=== PATIENT | female | born 1980 | race Caucasian/White ===

== ENCOUNTER 2018-11-23 09:56 | Outpatient (REF) | payer MEDICAID, SELFPAY ==
--- NOTE | 2018-11-23 09:00 | PAPFT_PTH ---
PATIENT: Maria Del Carmen Guevara LOC: [facility]#:[id number] AGE/SX: 38/F ROOM: RE11/23/[address]: Rosaura Allan : 1980 BED: DIS: 11/23/2018 SPEC #: [id number] RECD: 11/23/18 18:43 STATUS: RUPA REQ #: [id number] RAVEN: 11/23/18 09:[address]: Rosaura Allan DEPT: [facility] Cytology RECD BY: Amber Paul ENTERED: 11/23/18 18:43 SP TYPE: PAPFT OTHR DR: Rae Goodson Tissues: 1 - CX/ENDOCX FOR PAP SMEARS Procedures: PAP THIN PREP/UVM Screening HPV DNA PROBE Comments: [id number]
== END 2018-11-23 10:16 ==
LOC: NCHCN 09:56
PROVIDERS: PCP Family Medicine; Visit Provider Nurse Practitioner
DX: Z12.4 Encounter for screening for malignant neoplasm of cervix (principal); Z11.51 Encounter for screening for human papillomavirus (HPV); Z00.00 Encounter for general adult medical examination without abnormal findings
CPT/HCPCS: 80061; 82947; 88142; 87624

== ENCOUNTER 2020-09-11 12:39 | Outpatient (REF) | payer MEDICAID, SELFPAY ==
--- NOTE | 2020-09-11 11:30 | PAPFT_PTH ---
PATIENT: Maria Del Carmen Guevara LOC: [facility]#:[id number] AGE/SX: 40/F ROOM: RE09/11/[address]: Rosaura Allan : 1980 BED: DIS: 09/11/2020 SPEC #: [id number] RECD: 09/12/20 12:55 STATUS: RUPA LANCE #: [id number] RAVEN: 09/11/20 11:[address]: Rosaura Allan DEPT: [facility] Cytology RECD BY: Amber Paul ENTERED: 09/12/20 12:55 SP TYPE: PAPFT OTHR DR: Rae Goodson Tissues: 1 - CX/ENDOCX FOR PAP SMEARS Procedures: PAP THIN PREP/UVM Screening HPV DNA PROBE Comments: [id number]
== END 2020-09-11 12:40 | disposition home or self-care (01) ==
LOC: NCHCN 12:39
PROVIDERS: PCP Family Medicine; Visit Provider Nurse Practitioner
DX: Z12.4 Encounter for screening for malignant neoplasm of cervix (principal); Z11.51 Encounter for screening for human papillomavirus (HPV); R87.618 Other abnormal cytological findings on specimens from cervix uteri; R87.810 Cervical high risk human papillomavirus (HPV) DNA test positive
CPT/HCPCS: 88142; 87624

== ENCOUNTER 2020-09-13 19:43 | Outpatient (REF) | payer MEDICAID, SELFPAY ==
[2020-09-13 20:09] LABS: Calculated LDL 139 mg/dL (<100); Cholesterol 197 mg/dL (<200); Glucose 90 mg/dL (74-106); HDL Cholesterol 46 mg/dL (40-60); Triglyceride 60 mg/dL (<150)
== END 2020-09-13 19:44 | disposition home or self-care (01) ==
LOC: NCHCN 19:43
PROVIDERS: PCP Family Medicine; Visit Provider Nurse Practitioner
DX: Z13.1 Encounter for screening for diabetes mellitus (principal); Z13.220 Encounter for screening for lipoid disorders
CPT/HCPCS: 80061; 82947

== ENCOUNTER 2020-12-31 06:42 | Emergency (ER) | payer MEDICAID, SELFPAY ==
[2020-12-31 06:49] VITALS: BP 148/78; PULSE 80; RESP 20; TEMP 37; O2SAT 98
--- NOTE | 2020-12-31 07:00 | RT.EKG_ITS ---
APPROVED REPORT Exam: Resting ECG Reason for Exam: chest pain Patient Location: E HR:62 bpm ECG Measurements Heart Rate [address] 141 P 31 QRSd 103 QRS 44 QT 406 T 33 QTc 411 Conclusion Sinus rhythm...normal P axis, V-rate 60- 99 Physician: no stemi, q wave in III
[2020-12-31 07:38] LABS: Abs Immature Grans 0.01 10^3/uL (0.0-0.06); Absolute Basophil Count 0.02 10^3/uL (0.0-0.2); Absolute Eosinophil Count 0.05 10^3/uL (0.0-0.7); Absolute Lymphocyte Count 1.54 10^3/uL (1.2-3.4); Absolute Monocyte Count 0.37 10^3/uL (0.1-0.8); Absolute Neutrophil Count 3.55 10^3/uL (1.2-6.7); Basophils % 0.4; Eosinophils % 0.9; HCT 39.8 % (36.0-46.0); HGB 13.2 g/dL (11.2-15.7); Immature Grans % 0.2; Lymphocytes % 27.8; MCH 30.6 pg (27.0-33.0); MCHC 33.2 % (32.0-36.0); MCV 92.1 fL (80-95); MPV 9.4 fL (8.0-11.0); Monocytes % 6.7; Nucleated RBC 0 %; Platelet Count 211 10^3/uL (130-400); RBC 4.32 10^6/uL (3.93-5.22); RDW-SD 40.8 fL; WBC 5.54 10^3/uL (4.4-10.8)
--- NOTE | 2020-12-31 07:40 | W.ED.GENAD ---
Discharge Plan Disposition Patient Disposition: HOME Condition: Stable Discharge Details Clinical Impression: Chest pain Primary Care Provider: Rae Goodson ED Provider: Lina Jones Home Meds and New Rx's Prescriptions: New famotidine [Pepcid] 40 mg tablet 40 mg PO DAILY Qty: 7 RF: 0 No Action mometasone [Nasonex] 17 GM spray,non-aerosol 2 spry NS DAILY RF: 0 venlafaxine 75 MG tablet 75 mg PO DAILY RF: 0 acetaminophen [Mapap Extra Strength] 500 MG tablet 500 mg PO PRN PRNRF: 0 Discharge Instructions Instructions: Chest Pain (ED), Diet for Stomach Ulcers and Gastritis (ED), GERD (Gastroesophageal Reflux Disease) (ED) Additional Instructions: Please return immediately to the emergency department if you develop any new or worsening symptoms, if your condition does not improve as expected, or if you become otherwise concerned. It is extremely important that you call soon as possible to make an appointment to be seen in follow-up for this visit by your primary care doctor. It is also extremely important that you undergo stress testing as we discussed. Referrals: Rae Goodson MD [Primary Care Provider] - Medical Decision Making <Dionte Winchester DO - Last Filed: 12/31/20 07:44> This is a 40-year-old female with no significant past medical history except for previous tobacco abuse, who presents today for evaluation of chest pain. Patient states that at 11 PM she developed burning in her chest and a mild chest heaviness with no pleuritic chest pain, shortness of breath, arm neck or shoulder pain. She took some Tums, and the slightly settled the symptoms down. Eventually the pain transition to her right upper quadrant which is very mild and then went away on its own. She came to the ER for further assessment. Currently she feels that the pain is significantly improved and that her biggest concern is the heart. She denies any exertional dyspnea, or previous cardiac disease. Family history is positive for massive heart attack in her father at the age of 38. She denies any new medications. No other complaints at this time. No other modifying factors. Physical exam is unremarkable. No significant abdominal tenderness, negative Marmolejo sign, no pain or McBurney's point. Patient states that her abdomen does not hurt and she does not want further imaging work-up of that. She states her primary concern was a brief episode of chest pain that she had last night especially in the setting of her father's heart attack. She states that she only wants further evaluation for this at this time. I do feel this is reasonable, especially based on exam. Will get EKG, laboratory work-up, monitor closely and reassess. Symptoms are inconsistent with PE or dissection. Most likely diagnosis is reflux, however we will evaluate for cardiac etiology. <Lina Jones MD - Last Filed: 12/31/20 14:30> Maria Del Carmen Guevara is a 40-year-old woman who presented to emergency department with burning chest pain and right upper quadrant pain that began at 1130 last night, now resolved, signed out to me at time of shift change by Dr. Winchester with lab work pending. Labs reviewed, white count 5.5, hemoglobin 13.2, potassium 4.0, calcium 10.5, troponin 0.05. Patient reassessed, she denies any pain or any symptoms. Exam/history/work-up at this time is not consistent with pneumothorax, bacterial pneumonia, acute aortic process, pulmonary embolism, sepsis, acute emergent intra-abdominal process, other. Discussed with patient that she is low risk by HEART score, need for outpatient stress test. Also discussed possibility of GERD as etiology of symptoms, with plan for dietary changes and Pepcid as outpatient. Plan for outpatient follow-up with PCP. I had a lengthy discussion with Patient regarding return to emergency department precautions, home care, and importance of outpatient follow-up. Pt verbalizes understanding of the plan and is amenable. Patient discharged to home with clear plan for outpatient follow-up. All questions were answered. Disposition decision was made weighing the risks and benefits of hospitalization versus outpatient treatment, the risk for further decompensation, and the patient's wishes. Medical Records Medical records reviewed: Yes I reviewed the patient's medical records. Lab Data Lab results reviewed: Yes I reviewed the patient's lab results. Labs: Laboratory Tests Range/Units 12/31/20 12/31/20 07:25 07:25 WBC (4.4-10.8) 10^3/uL 5.54 RBC (3.93-5.22) 10^6/uL 4.32 Hgb (11.2-15.7) g/dL 13.2 Hct (36.0-46.0) % 39.8 MCV (80-95) fL 92.1 MCH (27.0-33.0) pg 30.6 MCHC (32.0-36.0) % 33.2 RDW (11.7-14.6) % 12.0 Plt Count (130-400) 10^3/uL 211 MPV (8.0-11.0) fL 9.4 Immature Gran % 0.2 Neutrophils % 64.0 Lymphocytes % 27.8 Monocytes % 6.7 Eosinophils % 0.9 Basophils % 0.4 Nucleated RBC % % 0 Absolute Neutrophils (1.2-6.7) 10^3/uL 3.55 Absolute Lymphocytes (1.2-3.4) 10^3/uL 1.54 Absolute Monocytes (0.1-0.8) 10^3/uL 0.37 Absolute Eosinophils (0.0-0.7) 10^3/uL 0.05 Absolute Basophils (0.0-0.2) 10^3/uL 0.02 Sodium (136-145) mmol/L 143 Potassium (3.5-5.1) mmol/L 4.0 Chloride (98-107) mmol/L 105 Carbon Dioxide (21.0-32.0) mmol/L 29.1 Anion Gap (3-11) mmol/L 8.9 BUN (7-18) mg/dL 16 Creatinine (0.55-1.02) mg/dL 0.8 Estimated GFR/1.73 m2 (mL/min/1.73m2) >= 60.00 Glucose (74-106) mg/dL 114 H Calcium (8.5-10.1) mg/dL 10.5 H Total Bilirubin (0.2-1.0) mg/dL 0.5 AST (15-37) U/L 16 ALT (14-59) U/L 24 Alkaline Phosphatase (46-116) U/L 65 Troponin I (<0.06) ng/mL < 0.05 Total Protein (6.4-8.2) g/dL 7.6 Albumin (3.4-5.0) g/dL 4.1 Lipase (73-393) U/L 177 HPI <Dionte Winchester DO - Last Filed: 12/31/20 07:44> General Date/Time Provider Initiated Documentation: 12/31/20 06:45. HPI Narrative: This is a 40-year-old female with no significant past medical history except for previous tobacco abuse, who presents today for evaluation of chest pain. Patient states that at 11 PM she developed burning in her chest and a mild chest heaviness with no pleuritic chest pain, shortness of breath, arm neck or shoulder pain. She took some Tums, and the slightly settled the symptoms down. Eventually the pain transition to her right upper quadrant which is very mild and then went away on its own. She came to the ER for further assessment. Currently she feels that the pain is significantly improved and that her biggest concern is the heart. She denies any exertional dyspnea, or previous cardiac disease. Family history is positive for massive heart attack in her father at the age of 38. She denies any new medications. No other complaints at this time. No other modifying factors. Related Data Home Medications Medication Instructions Recorded Confirmed acetaminophen [Mapap Extra 500 mg PO PRN PRN 05/27/12 12/31/20 Strength] venlafaxine 75 mg PO DAILY 05/27/12 12/31/20 mometasone [Nasonex] 2 spry NS DAILY spray 10/06/16 12/31/20 famotidine [Pepcid] 40 mg PO DAILY #7 tab 12/31/20 Previous Rx's Medication Instructions Recorded famotidine [Pepcid] 40 mg PO DAILY #7 tab 12/31/20 Allergies Allergy/AdvReac Type Severity Reaction Status Date / Time No Known Allergies Allergy Unverified 07/23/17 09:44 General Stated Complaint: Abd Prob QUEENIE: 3 Review of Systems <Dionte Winchester DO - Last Filed: 12/31/20 07:44> All systems reviewed & are unremarkable except as noted in HPI and below PFSH <Dionte Winchester DO - Last Filed: 12/31/20 07:44> Active Problem List (Updated 12/31/20 @ 10:18 by Lina Jones MD) Chest pain (Acute) Social History Smoking/Tobacco Use Status: Current every day Smoking risk assessment performed?: Yes Alcohol Intake: never Drug use: Never Do you feel safe at home: Yes Do you feel safe in your relationship?: Yes Exam <Dionte Winchester DO - Last Filed: 12/31/20 07:44> Narrative Exam Narrative: 1.Const: Well-nourished, Well-developed, appearing stated age 2.Eyes: PERRL, no conjunctival injection, and symmetrical lids. 3.ENT: Atraumatic external nose and ears. Moist MM. Neck: Symmetric, trachea midline, No thyromegaly. 4.CVS: +S1/S2, No murmurs or gallops. Peripheral pulses 2+ and equal in all extremities. Brisk capillary refill in all extremities. 5.RESP: Unlabored respiratory effort. Clear to auscultation bilaterally. No wheezes rales or rhonchi 6.GI: Soft, Nontender/Nondistended, No hepatosplenomegaly. No guarding or rebound. No pain at McBurney's point, negative Marmolejo sign. No signs of an acute surgical abdomen. 7.MSK: Normocephalic/Atraumatic, Extremities w/o deformity or ttp No cyanosis or clubbing, Normal movement of all extremities 8.Skin: Warm, Dry. No rashes or lesions. 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 Sensation grossly intact, no focal neurologic deficits. 10.Psych: (AAO) x3. Appropriate mood and affect Course <Dionte Winchester DO - Last Filed: 12/31/20 07:44> Vital Signs Vital signs: Vital Signs Temperature 37.0 C 12/31/20 06:49 Pulse 80 12/31/20 06:49 Respiratory Rate 20 12/31/20 06:49 Blood Pressure 148/78 H 12/31/20 06:49 Pulse Oximetry 98 12/31/20 06:49 Temperature 37.0 C 12/31/20 06:49 Temperature Source Temporal Artery Scan 12/31/20 06:49 Pulse 80 12/31/20 06:49 Respiratory Rate 20 12/31/20 06:49 Blood Pressure 148/78 H 12/31/20 06:49 Blood Pressure Position Sitting 12/31/20 06:49 Pulse Oximetry 98 12/31/20 06:49 Oxygen Delivery Method Room Air 12/31/20 06:49 Oxygen Flow Rate 0 12/31/20 06:49 Pain Level 5 12/31/20 06:49 Lab/Test Results Lab/Test Results: Laboratory Tests Range/Units 12/31/20 07:25 WBC (4.4-10.8) 10^3/uL 5.54 RBC (3.93-5.22) 10^6/uL 4.32 Hgb (11.2-15.7) g/dL 13.2 Hct (36.0-46.0) % 39.8 MCV (80-95) fL 92.1 MCH (27.0-33.0) pg 30.6 MCHC (32.0-36.0) % 33.2 RDW (11.7-14.6) % 12.0 Plt Count (130-400) 10^3/uL 211 MPV (8.0-11.0) fL 9.4 Immature Gran % 0.2 Neutrophils % 64.0 Lymphocytes % 27.8 Monocytes % 6.7 Eosinophils % 0.9 Basophils % 0.4 Nucleated RBC % % 0 Absolute Neutrophils (1.2-6.7) 10^3/uL 3.55 Absolute Lymphocytes (1.2-3.4) 10^3/uL 1.54 Absolute Monocytes (0.1-0.8) 10^3/uL 0.37 Absolute Eosinophils (0.0-0.7) 10^3/uL 0.05 Absolute Basophils (0.0-0.2) 10^3/uL 0.02 Sign Out <Dionte Winchester DO - Last Filed: 12/31/20 07:44> Sign Out Data: Sign Out Comment: Chest pain, follow-up on labs and EKG Last updated by Dionte Winchester DO at 12/31/20 08:14
[2020-12-31 08:28] LABS: BUN 16 mg/dL (7-18); CREATININE 0.8 mg/dL (0.55-1.02); Calcium 10.5 mg/dL (8.5-10.1); Glucose 114 mg/dL (74-106)
[2020-12-31 08:29] LABS: ALT 24 U/L (14-59); AST 16 U/L (15-37); Albumin 4.1 g/dL (3.4-5.0); Alkaline Phosphatase 65 U/L (46-116); Anion Gap 8.9 mmol/L (3-11); Bilirubin, Total 0.5 mg/dL (0.2-1.0); CO2 29.1 mmol/L (21.0-32.0); Chloride 105 mmol/L (98-107); Lipase 177 U/L (73-393); Sodium 143 mmol/L (136-145); Total Protein 7.6 g/dL (6.4-8.2); Troponin I < 0.05 ng/mL (<0.06)
== END 2020-12-31 10:39 | disposition home or self-care (01) ==
PROVIDERS: Student in an Organized Health Care Education/Training Program; Emergency Provider Student in an Organized Health Care Education/Training Program; PCP Family Medicine
DX: R07.9 Chest pain, unspecified (principal); R10.11 Right upper quadrant pain
CPT/HCPCS: 36415; 80053; 83690; 93005; 99283; 84484; 85025; 93010

== ENCOUNTER 2021-01-08 00:31 | Outpatient (CLI) | payer MEDICAID, SELFPAY | END 2021-01-08 00:51 | PROVIDERS: PCP Family Medicine; Visit Provider Student in an Organized Health Care Education/Training Program ==

== ENCOUNTER 2022-08-03 20:50 | Emergency (ER) | payer MEDICAID, SELFPAY ==
[2022-08-03] VITALS (16 sets, daily range): BP systolic 91–152; BP diastolic 65–84; PULSE 57–81; RESP 14–24; TEMP 36.8; O2SAT 100
--- NOTE | 2022-08-03 20:45 | RT.EKG_ITS ---
APPROVED REPORT Exam: Resting ECG Reason for Exam: chest pain Patient Location: E HR:61 bpm ECG Measurements Heart Rate [address] 128 P 46 QRSd 100 QRS 82 QT 395 T 49 QTc 399 Conclusion Sinus rhythm...normal P axis, V-rate 60- 99
--- NOTE | 2022-08-03 21:00 | ED.GENADUL_ITS ---
Discharge Plan Disposition Patient Disposition: Home Condition: Good Discharge Details Clinical Impression: Neck and shoulder pain Primary Care Provider: Rae Goodson ED Provider: Yesenia Esteban Home Meds and New Rx's Prescriptions: New meloxicam submicronized 10 mg capsule 10 mg PO DAILY Qty: 30 0RF Continued mometasone [Nasonex] 17 GM spray,non-aerosol 2 spry NS DAILY venlafaxine 75 MG tablet 75 mg PO DAILY Patient Comments: 05/08/17 75mg plus 37.5mg daily. DM acetaminophen [Mapap Extra Strength] 500 MG tablet 500 mg PO PRN PRN famotidine [Pepcid] 40 mg tablet 40 mg PO DAILY Qty: 7 0RF Discharge Instructions Instructions: Shoulder Pain (ED), Acute Neck Pain (ED) Additional Instructions: Try the meloxicam as prescribed. Avoid ibuprofen or naproxen while taking this. You may augment this with Tylenol 650 mg every 6 hours as needed for pain. Apply heat 20 minutes on and 20 minutes off as needed for pain. See your primary care doc on Thursday as scheduled. Return to ED for severe numbness or weakness in your arm, chest pain, difficulty breathing, any other concerns. Medical Decision Making Of note, patient's father had an WI when he was 39 years old. He is still alive but did have to have a bypass. She has no other first-degree relatives with a history of coronary artery disease. She vapes but does not use cocaine or meth. We discussed vaping and EVALI. There is no diabetes, hypertension, or high cholesterol. Do not think these episodes are coming from her heart but perhaps shoulder or neck. We discussed this. She has an appointment with her PCP on Thursday. She may need a referral to physical therapy and/or additional imaging. I have written her for an additional NSAID and told her to try some heat. Medical Records Medical records reviewed: Yes I reviewed the patient's medical records. Imaging Data Radiologic Study: Imaging: X-Ray (Cervical spine and left shoulder x-rays show no acute disease) Lab Data Lab results reviewed: Yes I reviewed the patient's lab results. Lab results narrative: Unremarkable including troponin ECG Data Attestation: I personally reviewed and interpreted this ECG (s) as follows: (EKG: NSR 60, no ST-T changes, normal intervals, some artifact) HPI General Date/Time Provider Initiated Documentation: 08/03/22 20:51 . HPI Narrative: This 42-year-old female patient presents with a chief complaint of left shoulder, neck, and arm pain. The patient states that for the past 4 months or so she has had off-and-on episodes of anterior and posterior shoulder pain radiating up into her posterior neck and down her arm to her wrist. She describes no dermatomal pattern to the arm pain. She says that the shoulder and neck pain feel like spasm and she has her partner massage the areas when it occurs. She can bring the neck and shoulder discomfort on with neck extension and turning it laterally to the right. It can come on when she is at rest, ambulating, at night, during the day, etc. Today it lasted for a large part of the day and that is why she decided to come to the emergency department. The arm discomfort is of warmness. She says that that it is circumferential in nature and does not go down to her fingers but stops at her wrist. There is no numbness or weakness. Related Data Home Medications Medication Instructions Recorded Confirmed acetaminophen 500 mg tablet (Mapap 500 mg PO PRN PRN 05/27/12 12/31/20 Extra Strength) venlafaxine 75 mg tablet 75 mg PO DAILY 05/27/12 12/31/20 mometasone 50 mcg/actuation nasal 2 spry NS DAILY 10/06/16 12/31/20 spray (Nasonex) famotidine 40 mg tablet (Pepcid) 40 mg PO DAILY #7 tabs 12/31/20 meloxicam submicronized 10 mg 10 mg PO DAILY #30 caps 08/03/22 capsule Previous Rx's Medication Instructions Recorded famotidine 40 mg tablet (Pepcid) 40 mg PO DAILY #7 tabs 12/31/20 meloxicam submicronized 10 mg 10 mg PO DAILY #30 caps 08/03/22 capsule Allergies Allergy/AdvReac Type Severity Reaction Status Date / Time No Known Allergies Allergy Unverified 07/23/17 09:44 General Stated Complaint: Chest Pain QUEENIE: 3 Review of Systems Constitutional Constitutional: Denies chills, Denies fever(s), Denies headache(s) and Denies weakness Eyes Eyes: Denies diplopia and Reports other (no redness) ENT Ears, Nose, Mouth, and Throat: Denies otalgia, Denies headache(s), Denies nasal congestion, Denies nasal discharge, Reports neck pain and Denies sore throat Cardiovascular Cardiovascular: Denies chest pain, Denies palpitations and Denies dyspnea Respiratory Respiratory: Denies cough and Denies dyspnea Gastrointestinal Gastrointestinal: Denies abdominal pain, Denies diarrhea, Denies nausea and Denies vomiting Genitourinary Genitourinary: Denies dysuria Musculoskeletal Musculoskeletal: Denies myalgias, Denies muscle weakness, Reports neck pain, Denies numbness and Reports other (edema) Comments: Has left neck, shoulder, and arm pain Integumentary/Breasts Skin/Breast: Denies change in pigmentation and Denies rash Neurologic Neurologic: Denies headache(s), Denies numbness and Denies weakness Endocrine Endocrine: Denies palpitations PFSH All Active Problems (Updated 08/03/22 @ 23:19 by Yesenia Esteban MD) Chest pain (Acute) Neck and shoulder pain (Acute) Social History Smoking/Tobacco Use Status: Current every day Smoking risk assessment performed?: Yes Alcohol Intake: never Drug use: Never Do you feel safe at home: Yes Do you feel safe in your relationship?: Yes Exam Const General: no acute distress, well developed, well groomed and not in acute distress Nutritional Appearance: well nourished Orientation: alert and oriented x3 [facility] Head: normocephalic and atraumatic Ears: external ears normal Mouth: oropharynx normal and moist mucous membranes Throat: posterior oropharynx normal Eyes Conjunctivae: conjunctivae normal Neck Neck: full ROM and supple Chest Chest: normal inspection of the chest Resp Effort & Inspection: normal respiratory effort Auscultation: clear to auscultation bilaterally Cardio Rate: regular rate Rhythm: regular rhythm Heart Sounds: no murmurs and no rubs GI Inspection: normal to inspection Palpation: soft, nontender and other (non distended) Auscultation: normal bowel sounds Back/Spine/Pelvis Cervical Spine: cervical ROM normal, pain with cervical ROM and No cervical spinal tenderness Thoracic/Lumbar Spine: No thoracic spinal tenderness Skin General skin exam: no rashes or lesions noted and other (pink, warm, dry) Neuro General: patient alert, patient awake and patient oriented x3 Speech: speech normal Motor: other (MITCHELL) Sensory Exam: no sensory deficits noted Extrem General: normal to inspection, full ROM and pedal edema present Left upper extremity: normal to inspection and normal capillary refill; no edema and joint enlargement noted Other: Left shoulder is atraumatic and nontender to palpation. Patient has full range of motion but says that it hurts when she lifts her arm above her shoulder. She is neurovascularly intact distally with a 2+ radial pulse. She has good internal rotation without difficulty. Paraspinal cervical pain and scapular tenderness are absent. Psych Mental Status: mental status grossly normal Speech and Movement: speech and movement normal Affect: normal affect Course Vital Signs Vital signs: Vital Signs Temperature 36.8 C 08/03/22 20:53 Pulse 71 08/03/22 20:53 Respiratory Rate 16 08/03/22 20:53 Blood Pressure 152/75 H 08/03/22 20:53 Pulse Oximetry 100 08/03/22 20:53 Temperature 36.8 C 08/03/22 20:53 Temperature Source Temporal Artery Scan 08/03/22 20:53 Pulse 71 08/03/22 20:53 Respiratory Rate 16 08/03/22 20:53 Blood Pressure 152/75 H 08/03/22 20:53 Blood Pressure Position Sitting 08/03/22 20:53 Pulse Oximetry 100 08/03/22 20:53 Oxygen Delivery Method Room Air 08/03/22 20:53 Oxygen Flow Rate 0 08/03/22 20:53 Pain Level 0 08/03/22 20:53
--- NOTE | 2022-08-03 21:39 | NUR.NOTE ---
2119 pt's sitting in chair while drawing blood, he fainted and fell to the floor. able to wake up, put in a recliner and cool cloth to the back of his neck. declined medical intervention from staff.Nursing Note:
[2022-08-03] MEDS: Aspirin 81 MG CHEW 324 MG PO (21:40)
[2022-08-03 21:42] LABS: Abs Immature Grans 0.01 10^3/uL (0.0-0.06); Absolute Basophil Count 0.02 10^3/uL (0.0-0.2); Absolute Eosinophil Count 0.06 10^3/uL (0.0-0.7); Absolute Lymphocyte Count 2.76 10^3/uL (1.2-3.4); Absolute Monocyte Count 0.48 10^3/uL (0.1-0.8); Absolute Neutrophil Count 3.55 10^3/uL (1.2-6.7); Basophils % 0.3; Eosinophils % 0.9; HCT 39.5 % (36.0-46.0); HGB 13.3 g/dL (11.2-15.7); Immature Grans % 0.1; Lymphocytes % 40.1; MCH 30.4 pg (27.0-33.0); MCHC 33.7 % (32.0-36.0); MCV 90 fL (80-95); MPV 9.8 fL (8.0-11.0); Neutrophils % 51.6; Platelet Count 231 10^3/uL (130-400); RBC 4.37 10^6/uL (3.93-5.22); RDW 12.1 % (11.7-14.6); RDW-SD 39.9 fL; WBC 6.88 10^3/uL (4.4-10.8)
[2022-08-03 21:55] LABS: ALT 23 U/L (14-59); AST 16 U/L (15-37); Albumin 4.4 g/dL (3.4-5.0); Alkaline Phosphatase 73 U/L (46-116); Anion Gap 9.9 mmol/L (3-11); BUN 15 mg/dL (7-18); Bilirubin, Total 0.6 mg/dL (0.2-1.0); CO2 29.1 mmol/L (21.0-32.0); CREATININE 0.9 mg/dL (0.55-1.02); Calcium 9.4 mg/dL (8.5-10.1); Chloride 104 mmol/L (98-107); Estimated GFR 81.35 (mL/min/1.73m2); Glucose 90 mg/dL (74-106); Magnesium 2.1 mg/dL (1.8-2.4); Potassium 3.7 mmol/L (3.5-5.1); Sodium 143 mmol/L (136-145); Total Protein 8.2 g/dL (6.4-8.2); Troponin I < 50 ng/L (<or=60)
--- NOTE | 2022-08-03 22:30 | DI.RAD_ITS ---
Exam(s) XR SHOULDER LT COMPLETE 2+V EXAM: XR SHOULDER LT COMPLETE 2+V CLINICAL HISTORY: Pain. TECHNIQUE: 2D digital imaging was performed. Three views. COMPARISON: No exams were available for comparison FINDINGS: BONES: No acute fracture is present. No bony destructive lesion is seen. JOINTS: No dislocation present. SOFT TISSUE: Normal. IMPRESSION: Unremarkable radiographs of the left shoulder. DATA REPOSITORY: RADIATION DOSE DELIVERED:
--- NOTE | 2022-08-03 22:30 | DI.RAD_ITS ---
Exam(s) XR CERVICAL SP GALARZA TRAUMA 2-3V EXAM: XR CERVICAL SP GALARZA TRAUMA 2-3V CLINICAL HISTORY: pain worse with movement, into L arm. TECHNIQUE: 2D digital imaging was performed. COMPARISON: No exams were available for comparison FINDINGS: BONES: No fracture or destructive lesion. Vertebral bodies are unremarkable. Mild facet degenerative changes. DISKS: Intervertebral disc spaces are maintained. ALIGNMENT: Cervical spinal alignment is within normal limits. The odontoid and atlantoaxial articulat ions are normal. SOFT TISSUE: Normal. The lung apices are clear. IMPRESSION: No acute abnormality. DATA REPOSITORY: RADIATION DOSE DELIVERED:
--- NOTE | 2022-08-04 01:02 | DI.VRAD_ITS ---
PROCEDURE INFORMATION: Exam: XR Left Shoulder Exam date and time: 08/03/2022 11:14 PM Age: 42 years old Clinical indication: Shoulder; Left; Patient HX: Pain radiating into arm TECHNIQUE: Imaging protocol: Radiologic exam of the left shoulder. Views: 2 or more views. COMPARISON: No relevant prior studies available. FINDINGS: Bones/joints: No acute fracture. No dislocation. Soft tissues: Unremarkable. IMPRESSION: No fracture. If pain persists, consider nonemergent MRI for further evaluation. Dictated and Authenticated by: Jose F Krause MD. Ordering:LAUREANO Patterson MD
--- NOTE | 2022-08-04 01:02 | DI.VRAD_ITS ---
PROCEDURE INFORMATION: Exam: XR Cervical Spine Exam date and time: 08/03/2022 11:10 PM Age: 42 years old Clinical indication: Radicular pain (radiculopathy); Cervical region; Patient HX: Pain worse with movement into left arm TECHNIQUE: Imaging protocol: Radiologic exam of the cervical spine. Views: 2 or 3 views. COMPARISON: No relevant prior studies available. FINDINGS: Bones/joints: No acute fracture. Normal alignment. Soft tissues: Unremarkable. IMPRESSION: No fracture. If neck pain persists, consider MRI for further evaluation. Dictated and Authenticated by: Jose F Krause MD. Ordering:LAUREANO Patterson MD
--- NOTE | 2022-08-04 09:13 | NUR.NOTE ---
Nursing Note: Accessed chart to determine orders for EKG and to determine whether or not one needs to be cancelled. Duplicate order cancelled.
== END 2022-08-03 23:50 | disposition home or self-care (01) ==
PROVIDERS: Emergency Provider Emergency Medicine; PCP Family Medicine
DX: M54.2 Cervicalgia (principal); R07.9 Chest pain, unspecified
CPT/HCPCS: 36415; 80053; 93005; 99284; 72040; 73030; 83735; 84484; 85025; 93010

== ENCOUNTER 2022-08-04 16:02 | Outpatient (REF) | payer MEDICAID, SELFPAY ==
--- NOTE | 2022-08-04 15:45 | ENDO_PTH ---
PATIENT: Maria Del Carmen Guevara LOC: [facility] U#:[id number] AGE/SX: 42/F ROOM: RE08/04/[address]: Olya Linton : 1980 BED: DIS: 08/04/2022 SPEC #: [id number] RECD: 08/04/22 17:10 STATUS: RUPA LANCE #: [id number] RAVEN: 08/04/22 15:[address]: Olya Linton DEPT: Surgical Specimen RECD BY: Amber Paul ENTERED: 08/04/22 17:11 SP TYPE: Endo OTHR DR: Rae Goodson Tissues: 1 - ENDOCERVICAL BX/CURRETTE 2 - CERVICAL BIOPSY Procedures: GROSS AND MICRO LEVEL 4 Comments: [id number]
== END 2022-08-04 16:03 | disposition home or self-care (01) ==
LOC: LBN 16:02
PROVIDERS: PCP Family Medicine; Visit Provider Obstetrics & Gynecology Gynecology
DX: N87.1 Moderate cervical dysplasia (principal); Z87.42 Personal history of other diseases of the female genital tract
CPT/HCPCS: 88305

== ENCOUNTER 2022-08-07 19:09 | Outpatient (REF) | payer MEDICAID, SELFPAY ==
[2022-08-07 19:48] LABS: Hemoglobin A1C 5.3 % (<5.7)
[2022-08-07 19:56] LABS: Calculated LDL 119 mg/dL (<100); Cholesterol 186 mg/dL (<200); HDL Cholesterol 47 mg/dL (40-60); TSH 0.57 uIU/mL (0.36-3.74); Triglyceride 104 mg/dL (<150)
[2022-08-08 19:25] LABS: CRP, High Sensitivity 0.66 mg/L (See Note)
== END 2022-08-07 19:10 | disposition home or self-care (01) ==
LOC: NCHCN 19:09
PROVIDERS: PCP Nurse Practitioner Family; Visit Provider Nurse Practitioner Family
DX: E78.5 Hyperlipidemia, unspecified (principal); F41.8 Other specified anxiety disorders; Z82.49 Family history of ischemic heart disease and other diseases of the circulatory system; R73.9 Hyperglycemia, unspecified; Z00.00 Encounter for general adult medical examination without abnormal findings
CPT/HCPCS: 80061; 86141; 83036; 84443

== ENCOUNTER 2022-12-05 01:40 | Outpatient (CLI) | payer SELFPAY ==
--- NOTE | 2022-12-05 | DI.MAMMO_ITS ---
Exam(s) MAMMO SCREENING EXAM: MAMMO SCREENING CLINICAL HISTORY: SCREENING, Z12.31. TECHNIQUE: Bilateral full field digital CC and MLO mammographic images were obtained with 3D tomosyn thesis and utilizing computer aided detection (CAD). COMPARISON: None. This is a baseline mammogram on this 42-year-old patient. FINDINGS: Fibroglandular tissue is moderately dense, this somewhat decreasing the sensitivity of the mammogram for finding hidden underlying lesions There are no obvious spiculated masses nor malignant appearing microcalcification groups. There is no significant architectural distortion nor skin thickening-retraction. IMPRESSION: No radiographic evidence of malignancy. BI-RADS Category 1 - Negative Breast Density - Category C - Heterogeneously dense Breast density Category C or D implies that the patient has dense breast tissue. Dense breast tissue can make it harder to find cancer on a mammogram. Dense breast tissue is also associated with an incr eased risk of breast cancer. This information about the result of the mammogram report was provided to the patient to raise their awareness. Use this report when you speak with the patient about their risks for breast cancer, which includes their family history. At that time, you may recommend additional screening tests (Ultrasoun d or MRI) as these tests may add significant information. A negative radiographic report should not delay biopsy if a dominant or clinically suspicious mass is present. Up to ten percent of cancers are not identified on mammography. A negative report may reinforce clinical impression. Adenosis and dense breasts may obscure an underlying neoplasm. False positive reports average 6 to 10%. Patient will receive a letter notifying them of these results.
== END 2022-12-05 02:00 ==
LOC: DI 01:40
PROVIDERS: PCP Nurse Practitioner Family; Visit Provider Nurse Practitioner Family
DX: Z12.31 Encounter for screening mammogram for malignant neoplasm of breast (principal)
CPT/HCPCS: 77063; 77067

== ENCOUNTER 2024-05-18 02:08 | Outpatient (CLI) | payer BC, SELFPAY ==
--- NOTE | 2024-05-18 | DI.MAMMO_ITS ---
Exam(s) MAMMO SCREENING EXAM: MAMMO SCREENING CLINICAL HISTORY: Screening, Z12.31 TECHNIQUE: Bilateral full field digital CC and MLO mammographic images were obtained with 3D tomosyn thesis and utilizing computer aided detection (CAD). COMPARISON: Available for comparison. FINDINGS: Masses/Architectural Distortion: None seen. Microcalcifications: No suspicious pleomorphic-type are seen. Skin Thickening/Nipple Retraction: None. IMPRESSION: 1. No significant interval change with no specific features of malignancy noted. 2. Unless there is more urgent need, screening mammography is recommended, as per [employer] guidelines. BI-RADS Category 1 - Negative Breast Density - Category C - Heterogeneously dense Breast density category C or D implies that the patient has dense breast tissue. Dense breast tissue is very common and is not abnormal but dense breast tissue can make it harder to find cancer on a ma mmogram. Also, dense breast tissue may increase their breast cancer risk. This information about the result of the mammogram report was provided to the patient to raise their awareness. Use this report when you speak with the patient about their risks for breast cancer, which includes their family hist ory. At that time, you may recommend for more screening tests (Ultrasound or MRI) as they might be us eful based on their risk. A negative radiographic report should not delay biopsy if a dominant or clinically suspicious mass is present. Up to ten percent of cancers are not identified on mammography. A negative report may reinforce clinical impression. Adenosis and dense breasts may obscure an underlying neoplasm. False positive reports average 6 to 10%. Patient will receive a letter notifying them of these results.
== END 2024-05-18 02:28 ==
PROVIDERS: PCP Nurse Practitioner Family; Visit Provider Nurse Practitioner Family
DX: Z12.31 Encounter for screening mammogram for malignant neoplasm of breast (principal); R92.323 Mammographic fibroglandular density, bilateral breasts
CPT/HCPCS: 77063; 77067